=== PATIENT | male | born 1990 | race Caucasian/White ===

== ENCOUNTER 2019-07-07 19:11 | Emergency (ER) | payer MEDICAID ==
[~2019-07-07] VITALS: Ht 182.9 cm; Wt 129.0 kg
[~2019-07-07 19:11] MED LIST: ALBU6.7H9 INH; CEPH-571 PO; CLIN-90 PO; CYCL-1 PO; DICY10CA88 PO; HYDR-4353 PO; HYDR-4383 PO; OMEP20TA5 PO; ONDA4TAB6 PO; SUCR1ORA2 PO
[2019-07-07 19:26] VITALS: BP 170/115
[2019-07-07] MEDS ORDERED: ERYT1OIN6 EACHEYE (21:09)
== END 2019-07-07 21:16 | disposition home or self-care (01) ==
LOC: ER 19:11
DX: H10.9 Unspecified conjunctivitis (principal); I10 Essential (primary) hypertension; F12.90 Cannabis use, unspecified, uncomplicated; F19.90 Other psychoactive substance use, unspecified, uncomplicated; Z90.49 Acquired absence of other specified parts of digestive tract; Z88.4 Allergy status to anesthetic agent; Z79.2 Long term (current) use of antibiotics; Z79.899 Other long term (current) drug therapy
CPT/HCPCS: 99283

== ENCOUNTER 2019-09-30 16:02 | Emergency (ER) | payer MEDICAID ==
[~2019-09-30] VITALS: Ht 182.9 cm; Wt 136.0 kg
[~2019-09-30 16:02] MED LIST changes: -CLIN-90 PO; +CLIN-97 PO
[2019-09-30 16:10] VITALS: BP 157/112
[2019-09-30] MEDS ORDERED: TETanus/Pertussis (Acell)/Diphther VAC/PF (Tdap-Adult) 0.5ml syringe IMVAC ONE (16:25)
[2019-09-30] MEDS ORDERED: ibuprofen tablet 400 MG TABLET PO ONE (16:30)
[2019-09-30] MEDS ORDERED: ACET-2119 PO (16:39)
[2019-09-30] MEDS ORDERED: BACI1PAC7 TOP (16:39)
== END 2019-09-30 18:29 | disposition home or self-care (01) ==
LOC: ER 16:03
DX: S90.811A Abrasion, right foot, initial encounter (principal); I10 Essential (primary) hypertension; F12.90 Cannabis use, unspecified, uncomplicated; F19.90 Other psychoactive substance use, unspecified, uncomplicated; Z90.49 Acquired absence of other specified parts of digestive tract; Z88.4 Allergy status to anesthetic agent; Z79.2 Long term (current) use of antibiotics; Z79.899 Other long term (current) drug therapy; W18.39XA Other fall on same level, initial encounter; Y93.89 Activity, other specified; Y92.096 Garden or yard of other non-institutional residence as the place of occurrence of the external cause; Y99.8 Other external cause status
CPT/HCPCS: 73630; 90715; 99283

== ENCOUNTER 2020-09-17 10:46 | Emergency (ER) | payer MEDICAID ==
[~2020-09-17] VITALS: Ht 182.9 cm; Wt 122.7 kg
[2020-09-17 11:52] LABS: BASOPHILS % (AUTO) 0.2 % (0-1); EOSINOPHILS % (AUTO) 0.7 % (0-6); HEMATOCRIT 47.8 % (42.0-52.0); HEMOGLOBIN 16.6 g/dl (14.0-17.9); LYMPHOCYTES # (AUTO) 2.2 X10'3 (1.1-4.8); LYMPHOCYTES % (AUTO) 33.1 % (21-51); MEAN CORPUSCULAR HEMOGLOBIN 31.9 PG (27.0-31.0); MEAN CORPUSCULAR HGB CONC 34.7 g/dL (33.0-36.5); MEAN CORPUSCULAR VOLUME 91.9 FL (78-98); MEAN PLATELET VOLUME 9.2 FL (7.4-10.4); MONOCYTES # (AUTO) 0.5 X10'3 (0-0.9); MONOCYTES % (AUTO) 7.2 % (2-12); NEUTROPHILS # (AUTO) 3.9 X10'3 (1.8-7.7); NEUTROPHILS % (AUTO) 58.8 % (42-75); PLATELET COUNT 208 X10'3 (140-440); RED CELL DISTRIBUTION WIDTH 12.9 % (11.5-14.5); WHITE BLOOD COUNT 6.7 X10'3 (4.5-11.0)
[2020-09-17] MEDS ORDERED: ondansetron/PF 4mg/2ml inj IV ONE (12:00)
[2020-09-17] MEDS ORDERED: normal saline 1000ML IV soln IVB ONE (12:00)
[2020-09-17 12:27] LABS: ALANINE AMINOTRANSFERASE 18 U/L (12-78); ALBUMIN 4.3 G/DL (3.4-5.0); ALBUMIN/GLOBULIN RATIO 1.2 (1.1-1.5); ALKALINE PHOSPHATASE 79 IU/L (46-116); ANION GAP 10 (8-16); ASPARTATE AMINO TRANSFERASE 15 U/L (10-37); BILIRUBIN,TOTAL 0.9 MG/DL (0.1-1.0); BLOOD UREA NITROGEN 12 MG/DL (7-18); BUN/CREATININE RATIO 12.8 (5.4-32.0); CALCIUM 9.6 MG/DL (8.5-10.1); CHLORIDE 105 MMOL/L (99-107); CREATININE 0.94 MG/DL (0.60-1.10); GLUCOSE 100 MG/DL (70-104); LIPASE 112 U/L (73-393); MAGNESIUM 2.1 MG/DL (1.5-2.4); POTASSIUM 3.7 MMOL/L (3.5-5.1); SODIUM 142 MMOL/L (135-145); TOTAL CARBON DIOXIDE 26.6 MMOL/L (24-32); TOTAL PROTEIN 7.8 G/DL (6.4-8.2); eGFR > 90 ML/MIN
[2020-09-17] MEDS: morphine 4 MG/ML inj SYRINge IV PRN ×2 (12:32→14:19)
--- NOTE | 2020-09-17 12:59 | NUR ---
to ct scan
[2020-09-17] MEDS ORDERED: ONDA4TAB6 PO (13:29)
[2020-09-17] MEDS ORDERED: HYDR-3965 PO (13:29)
[2020-09-17] MEDS ORDERED: ketorolac trometh. 30mg/ml inj. IV ONE (13:30)
[2020-09-17] MEDS ORDERED: methylPREDNISolone sod succ 125mg/2ml vial IV ONE (13:30)
[2020-09-17 14:42] VITALS: BP 150/79
[2020-09-17 14:54] LABS: CLARITY,URINE CLEAR (Clear); COLOR,URINE YELLOW (Yellow); GLUCOSE, URINE NEGATIVE (Neg); KETONES,URINE NEGATIVE (Neg); LEUKOCYTE ESTERASE ,URINE NEGATIVE (Neg); NITRITES, URINE NEGATIVE (Neg); OCCULT BLOOD,URINE NEGATIVE (Neg); PROTEIN,URINE NEGATIVE (Neg); UROBILINOGEN,URINE 0.2 E.U/dL (0.2-1.0)
[2020-09-17 14:56] LABS: UA COLLECTION TYPE URINAL
== END 2020-09-17 14:56 | disposition home or self-care (01) ==
LOC: ER 10:46
DX: K52.9 Noninfective gastroenteritis and colitis, unspecified (principal); R50.9 Fever, unspecified; R10.84 Generalized abdominal pain; R11.2 Nausea with vomiting, unspecified; I10 Essential (primary) hypertension; F17.200 Nicotine dependence, unspecified, uncomplicated; F12.90 Cannabis use, unspecified, uncomplicated; F19.90 Other psychoactive substance use, unspecified, uncomplicated; Z90.89 Acquired absence of other organs; Z72.89 Other problems related to lifestyle; Z88.8 Allergy status to other drugs, medicaments and biological substances; Z79.2 Long term (current) use of antibiotics; Z79.899 Other long term (current) drug therapy
CPT/HCPCS: 36415; 71045; 74176; 80053; 81003; 83690; 83735; 85025; 96361; 96374; 96375; 96376; 99285; J1885; J2270; J2405; J2930; J7030